=== PATIENT | male | born 1955 | race Caucasian/White ===

== ENCOUNTER 2016-10-14 18:15 | Emergency (ER) | payer BC ==
[2016-10-14] MEDS ORDERED: HYDROMORPHONE HCL 1 MG/ML CPJ IVP ONE ×2 (19:00→20:06)
[2016-10-14] MEDS ORDERED: METHYLPREDNISOLONE PF 125MG/VIAL IVP ONE (19:00)
--- NOTE | 2016-10-14 19:06 | Emergency Department Record ---
History of Present Illness - General Chief complaint: Pain Stated complaint: RA PAIN IN LEFT SHOULDER Time Seen by Provider: 10/14/16 19:00 Source: Patient Mode of Arrival: Ambulatory Limitations: No limitations - History of Present Illness Initial comments: 60 yo male presents with left shoulder pain. He has chronic pain but the left shoulder has increased the last few days. No trauma. He has a history of RA. No fevers or chills. No redness or swelling. Dr Burger is his doctor that manages his RA pain and medications. MD Complaint: Joint pain Onset/Timin -: Hour(s) Location: Left, Shoulder Severity scale (1-10): 10 Quality: Sharp Consistency: Constant Improves with: Nothing Worsens with: Exertion, Palpation, Weight bearing Associated Symptoms: Denies other symptoms - Related Data Home Medications Medication Instructions Recorded Confirmed Last Taken Amitriptyline HCl [Amitriptyline 100 mg PO QHS 05/01/14 10/14/16 04/30/14 22:00 HCl] Hydroxychloroquine Sulfate 400 mg PO DAILY 05/01/14 10/14/16 05/01/14 [Plaquenil] Methotrexate Sodium [Methotrexate] 25 mg PO ASDIR 05/01/14 10/14/16 04/28/14 Metoprolol Tartrate [Metoprolol 50 mg PO DAILY 05/01/14 10/14/16 04/30/14 22:00 Tartrate] Omeprazole [Omeprazole] 20 mg PO DAILY 05/01/14 10/14/16 04/30/14 22:00 Prednisone [Prednisone] 7.5 mg PO DAILY 05/01/14 10/14/16 04/30/14 22:00 Spironolactone [Spironolactone] 75 mg PO DAILY 05/01/14 10/14/16 04/30/14 22:00 Triazolam [Triazolam] 0.25 mg PO QPM 05/01/14 10/14/16 05/01/14 00:00 Cholecalciferol (Vitamin D3) 5,000 unit PO DAILY 10/05/14 10/14/16 Unknown [Vitamin D3] Folic Acid 3 mg PO DAILY 10/05/14 10/14/16 Unknown [place]-3 Fatty Acids/Fish Oil [Fish 8 each PO DAILY 10/05/14 10/14/16 Unknown Oil 1,000 mg Softgel] Bupropion HCl [Wellbutrin] 75 mg PO DAILY 07/18/15 10/14/16 Unknown Hydrocodone/Acetaminophen [[place] 1 tab PO Q6H PRN 10/14/16 10/14/16 Unknown 10mg/325mg] Allergies Allergy/AdvReac Type Severity Reaction Status Date / Time No Known Drug Allergies Allergy Unverified 02/06/16 14:18 Travel Screening - Travel/Exposure Within Last 30 Days Have you traveled within the last 30 days?: No Review of Systems Constitutional: Denies: Chills, Fever, Malaise, Weakness Eyes: Denies: Eye discharge, Eye pain, Photophobia, Vision change ENT: Denies: Congestion, Throat pain Respiratory: Denies: Cough, Dyspnea, Hemoptysis, Stridor, Wheezes Cardiovascular: Denies: Chest pain, Palpitations, Syncope Endocrine: Denies: Fatigue Gastrointestinal: Denies: Abdominal pain, Diarrhea, Nausea, Vomiting Genitourinary: Denies: Dysuria, Frequency, Hematuria Musculoskeletal: Reports: Arthralgia, Neck pain. Denies: Back pain, Joint swelling, Myalgia Skin: Denies: Bruising, Change in color, Rash Neurological: Denies: Confusion, Headache Psychiatric: Denies: Anxiety Hematological/Lymphatic: Denies: Blood Clots, Easy bleeding, Easy bruising, Swollen glands Past Medical History - SOCIAL HISTORY Smoking Status: Light tobacco smoker (<10/day) Alcohol Use: None Drug Use: None - RESPIRATORY Hx Respiratory Disorders: No - CARDIOVASCULAR Hx Cardio Disorders: Yes Hx Abnormal EKG: Yes - NEURO Hx Neuro Disorders: No - GI Hx GI Disorders: No - Hx Genitourinary Disorders: No - ENDOCRINE Hx Endocrine Disorders: No - MUSCULOSKELETAL Hx Musculoskeletal Disorders: Yes Hx Arthritis: Yes Comment:: R.A. - PSYCH Hx Psych Problems: No - HEMATOLOGY/ONCOLOGY Hx Hematology/Oncology Disorders: No Family Medical History Any Significant Family History?: No Family Hx Comment (NOT TO BE USED IN PLACE OF ITEMS BELOW): pt unwilling to answer questions Physical Exam - General General Appearance: Alert, Oriented x3, Cooperative, No acute distress Limitations: No limitations - Head Head exam: Normal inspection - Eye Eye exam: Normal appearance, PERRL. negative: Conjunctival injection, Periorbital swelling - ENT ENT exam: Normal exam Ear exam: Normal external inspection Nasal Exam: Normal inspection Mouth exam: Normal external inspection Teeth exam: Normal inspection Throat exam: Normal inspection - Neck Neck exam: Normal inspection, Full ROM. negative: Tenderness - Respiratory Respiratory exam: Normal lung sounds bilaterally. negative: Respiratory distress - Cardiovascular Cardiovascular Exam: Regular rate, Normal rhythm, Normal heart sounds - GI/Abdominal GI/Abdominal exam: Soft. negative: Tenderness - Rectal Rectal exam: Deferred - exam: Deferred - Extremities Extremities exam: Normal inspection, Tenderness. negative: Full ROM, Joint swelling, Normal capillary refill, Pedal edema Image of Full Body: 1 - pain with ROM, normal inspection, no swelling, no redness, no skin changes or lesions. - Back Back exam: Reports: Normal inspection, Full ROM. Denies: Muscle spasm, Rash noted, Tenderness - Neurological Neurological exam: Alert, Normal gait, Oriented X3, Reflexes normal - Psychiatric Psychiatric exam: Normal affect, Normal mood. negative: Agitated, Anxious - Skin Skin exam: Dry, Intact, Normal color, Warm Course Vital Signs 10/14/16 18:31 Temperature 97.5 F L Pulse Rate 62 Respiratory 20 Rate Blood Pressure 137/70 Pulse Ox 98 - Reevaluation(s) Reevaluation #1: Vitals reviewed EMR reviewed for last visit. 2014. 10/14/16 19:05 Reevaluation #2: XR was read as negative for acute process I discussed the results with the patient He is to call his PCP for close follow up tomorrow to possibly adjust his medications as needed 10/14/16 20:07 Disposition Disposition: Discharge Clinical Impression: Rheumatoid arthritis flare Disposition: Home, Self-Care Condition: (1) Good Instructions: Rheumatoid Arthritis (ED) Additional Instructions: Return if you have uncontrolled pain, redness, fever, swelling Off work tomorrow Call your doctor tomorrow for close follow up Forms: Patient Portal Access Time of Disposition: 20:09
--- NOTE | 2016-10-20 10:18 | RADIOLOGY REPORT ---
DATE: 10/14/2016. EXAM: LEFT SHOULDER. HISTORY: Injury. TECHNIQUE: Three views of the left shoulder were performed. FINDINGS: No evidence of fracture or dislocation. No lytic or blastic lesion. IMPRESSION: NEGATIVE LEFT SHOULDER EXAMINATION. JOB NUMBER: [id number] MTDD
== END 2016-10-14 20:50 | disposition home or self-care (01) ==
LOC: ER 18:15
DX: M06.812 Other specified rheumatoid arthritis, left shoulder (principal)
CPT/HCPCS: 99284 ×2; 96376; 96374; 96375; 73030; J1170; J2930

== ENCOUNTER 2017-02-07 17:03 | Emergency (ER) | payer BC ==
--- NOTE | 2017-02-07 17:14 | Emergency Department Record ---
History of Present Illness - General Chief complaint: Pain Stated complaint: RT SHOULDER PAIN Time Seen by Provider: 02/07/17 17:13 Source: Patient Mode of Arrival: Ambulatory Limitations: No limitations - History of Present Illness Initial comments: The patient is here due to R shoulder pain for 5 hours. The onset was gradually this AM. He denies any trauma or injury. The patient has a long hx of RA and states this has happened to the L shoulder in the past. It is thought to be an arthritis flare up. He denies any fever, chills, or swelling and the patient is not on any blood thinners. MD Complaint: Joint pain Onset/Timin -: Hour(s) Location: Right, Shoulder Severity scale (1-10): 10 Quality: Aching, Sharp Consistency: Constant Improves with: Nothing Worsens with: Other Associated Symptoms: Arthralgias - Related Data Home Medications Medication Instructions Recorded Confirmed Last Taken Amitriptyline HCl [Amitriptyline 100 mg PO QHS 05/01/14 02/07/17 04/30/14 22:00 HCl] Hydroxychloroquine Sulfate 400 mg PO DAILY 05/01/14 02/07/17 05/01/14 [Plaquenil] Methotrexate Sodium [Methotrexate] 25 mg PO ASDIR 05/01/14 02/07/17 04/28/14 Metoprolol Tartrate [Metoprolol 50 mg PO DAILY 05/01/14 02/07/17 04/30/14 22:00 Tartrate] Omeprazole [Omeprazole] 20 mg PO DAILY 05/01/14 02/07/17 04/30/14 22:00 Prednisone [Prednisone] 7.5 mg PO DAILY 05/01/14 02/07/17 04/30/14 22:00 Spironolactone [Spironolactone] 75 mg PO DAILY 05/01/14 02/07/17 04/30/14 22:00 Triazolam [Triazolam] 0.25 mg PO QPM 05/01/14 02/07/17 05/01/14 00:00 Cholecalciferol (Vitamin D3) 5,000 unit PO DAILY 10/05/14 02/07/17 Unknown [Vitamin D3] Folic Acid 3 mg PO DAILY 10/05/14 02/07/17 Unknown [place]-3 Fatty Acids/Fish Oil [Fish 8 each PO DAILY 10/05/14 02/07/17 Unknown Oil 1,000 mg Softgel] Allergies Allergy/AdvReac Type Severity Reaction Status Date / Time No Known Drug Allergies Allergy Unverified 02/06/16 14:18 Travel Screening - Travel/Exposure Within Last 30 Days Have you traveled within the last 30 days?: No Review of Systems Constitutional: Denies: Chills, Fever Eyes: Denies: Eye discharge ENT: Denies: Congestion Respiratory: Denies: Cough, Dyspnea Past Medical History - SOCIAL HISTORY Smoking Status: Light tobacco smoker (<10/day) Alcohol Use: None Drug Use: None - RESPIRATORY Hx Respiratory Disorders: No - CARDIOVASCULAR Hx Cardio Disorders: Yes Hx Abnormal EKG: Yes - NEURO Hx Neuro Disorders: No - GI Hx GI Disorders: No - Hx Genitourinary Disorders: No - ENDOCRINE Hx Endocrine Disorders: No - MUSCULOSKELETAL Hx Musculoskeletal Disorders: Yes Hx Arthritis: Yes Comment:: R.A. - PSYCH Hx Psych Problems: No - HEMATOLOGY/ONCOLOGY Hx Hematology/Oncology Disorders: No Family Medical History Any Significant Family History?: No Family Hx Comment (NOT TO BE USED IN PLACE OF ITEMS BELOW): pt unwilling to answer questions Physical Exam - General General Appearance: Alert, Oriented x3, Cooperative, No acute distress - Head Head exam: Atraumatic, Normocephalic, Normal inspection - Eye Eye exam: Normal appearance, PERRL - Neck Neck exam: Normal inspection, Full ROM. negative: Tenderness - Respiratory Respiratory exam: Normal lung sounds bilaterally. negative: Respiratory distress - Cardiovascular Cardiovascular Exam: Regular rate, Normal rhythm, Normal heart sounds - Extremities Extremities exam: Normal inspection (There is no swelling, erythema, edema, or warmth.), Normal capillary refill, Other (The R arm and hand are NVI.). negative: Full ROM (There is decreased ROM due to pain.), Joint swelling Course Vital Signs 02/07/17 17:07 Temperature 97.7 F Pulse Rate 59 L Respiratory 18 Rate Blood Pressure 124/90 Pulse Ox 96 - Reevaluation(s) Reevaluation #1: The patient is doing very well at this time. His pain is improved and he feels ready for home. 02/07/17 18:17 Medical Decision Making - Data Complexity MDM Data: X-Ray Ordered and/or Reviewed - Radiology Data Radiology results: Report reviewed (R shoulder: Neg) Disposition Disposition: Discharge Clinical Impression: Shoulder pain, acute Qualifiers: Laterality: right Qualified Code(s): M25.511 - Pain in right shoulder Disposition: Home, Self-Care Condition: (1) Good Instructions: Arthralgia (ED) Additional Instructions: Please use your home arm sling for 2-3 days only. Continue your home pain medicines and use ice to the shoulder during the day. Please see your PCP for recheck later this week and return to the ER if worse. Forms: Patient Portal Access Time of Disposition: 18:19
[2017-02-07] MEDS ORDERED: HYDROMORPHONE HCL 1 MG/ML CPJ IM ONE ×2 (17:18→18:04)
[2017-02-07] MEDS ORDERED: METHYLPREDNISOLONE PF 125MG/VIAL IM ONE (17:18)
[2017-02-07] MEDS ORDERED: ONDANSETRON 4 MG ODT TABLET SL ONE (17:28)
== END 2017-02-07 18:41 | disposition home or self-care (01) ==
LOC: ER 17:03
DX: M25.511 Pain in right shoulder (principal); M06.9 Rheumatoid arthritis, unspecified
CPT/HCPCS: 96372; 99283; J1170; J2930

== ENCOUNTER 2017-05-21 17:38 | Emergency (ER) | payer BC ==
[2017-05-21] MEDS: HYDROMORPHONE HCL 1MG/ML **SYRINGE IM ONE (18:15)
--- NOTE | 2017-05-21 18:36 | Emergency Department Record ---
History of Present Illness - General Chief complaint: Pain Stated complaint: LEFT SHOULDER PAIN Time Seen by Provider: 05/21/17 18:12 Source: Patient Mode of Arrival: Ambulatory Limitations: No limitations - History of Present Illness Initial comments: The patient is here due to L shoulder pain for one day. The patient denies any fall or trauma or injury and states the shoulder just started hurting. He has a long hx of similar problems with pain in his joints from his RA. He denies any fever, chills, vomiting, recent dental procedures or surgeries. MD Complaint: Extremity pain Onset/Timin -: Days(s) Location: Left, Shoulder Severity scale (1-10): 10 Quality: Aching Consistency: Constant Improves with: Rest Worsens with: Palpation - Related Data Previous Rx's Medication Instructions Recorded Prednisone [Prednisone 20Mg] 40 mg PO DAILY #8 tab 05/21/17 Allergies Allergy/AdvReac Type Severity Reaction Status Date / Time No Known Drug Allergies Allergy Verified 05/21/17 17:46 Travel Screening - Travel/Exposure Within Last 30 Days Have you traveled within the last 30 days?: No - Travel/Exposure Within Last Year Have you traveled outside the [place] in the last year?: No - Additonal Travel Details Have you been exposed to anyone with a communicable illness?: No - Travel Symptoms Symptom Screening: None Review of Systems Constitutional: Denies: Chills, Fever Eyes: Denies: Eye discharge ENT: Denies: Congestion Respiratory: Denies: Cough, Dyspnea Past Medical History - SOCIAL HISTORY Smoking Status: Light tobacco smoker (<10/day) Alcohol Use: None Drug Use: None - RESPIRATORY Hx Respiratory Disorders: No - CARDIOVASCULAR Hx Cardio Disorders: Yes Hx Abnormal EKG: Yes - NEURO Hx Neuro Disorders: No - GI Hx GI Disorders: No - Hx Genitourinary Disorders: No - ENDOCRINE Hx Endocrine Disorders: No - MUSCULOSKELETAL Hx Musculoskeletal Disorders: Yes Hx Arthritis: Yes Comment:: R.A. - PSYCH Hx Psych Problems: No - HEMATOLOGY/ONCOLOGY Hx Hematology/Oncology Disorders: No Family Medical History Any Significant Family History?: Yes Family Hx Comment (NOT TO BE USED IN PLACE OF ITEMS BELOW): pt unwilling to answer questions Physical Exam - General General Appearance: Alert, Oriented x3, Cooperative, No acute distress - Head Head exam: Atraumatic, Normocephalic, Normal inspection - Eye Eye exam: Normal appearance, PERRL - Neck Neck exam: Normal inspection, Full ROM. negative: Tenderness - Respiratory Respiratory exam: Normal lung sounds bilaterally. negative: Respiratory distress - Cardiovascular Cardiovascular Exam: Regular rate, Normal rhythm, Normal heart sounds - GI/Abdominal GI/Abdominal exam: Soft, Normal bowel sounds. negative: Tenderness - Extremities Extremities exam: Normal inspection (There is no redness, warmth or edema appreciated.), Tenderness (There is mild diffuse tenderness to palpation of the L shoulder.). negative: Full ROM (There is decreased ROM due to pain.), Joint swelling - Neurological Neurological exam: Alert. negative: Motor sensory deficit Course Vital Signs 05/21/17 17:40 Temperature 97.9 F Pulse Rate 65 Respiratory 14 Rate Blood Pressure 130/72 Pulse Ox 100 - Reevaluation(s) Reevaluation #1: The patient is doing better at this time. His pain is improving and he would like to go home. 05/21/17 18:56 Disposition Disposition: Discharge Clinical Impression: Shoulder pain, left Qualifiers: Chronicity: acute Qualified Code(s): M25.512 - Pain in left shoulder Disposition: Home, Self-Care Condition: (1) Good Instructions: Shoulder Pain (ED) Additional Instructions: Please continue your regular medicines and start the new dose of Prednisone tomorrow. Take the [place] tonight if needed. Please see your PCP if not better in 2 days. Return to the ER if worse. Prescriptions: Prednisone [Prednisone 20Mg] 40 mg PO DAILY #8 tab Forms: Patient Portal Access Time of Disposition: 18:58 Quality - Quality Measures Quality Measures: N/A - Blood Pressure Screening View Details: Yes Does Patient Have Any of the Following: No Blood Pressure Classification: Pre-Hypertensive BP Reading Systolic Measurement: 130 Diastolic Measurement: 72 Screening for High Blood Pressure: < Pre-Hypertensive BP, F/U Documented > [ G8950] Pre-Hypertensive Follow-up Interventions: Referral to alternative/primary care provider.
[2017-05-21] MEDS: METHYLPREDNISOLONE PF 125MG/VIAL IM ONE (18:37)
[2017-05-21] MEDS: HYDROCODONE/APAP 5/325MG TABLET PO ONE (19:07)
== END 2017-05-21 19:09 | disposition home or self-care (01) ==
LOC: ER 17:38
DX: M25.512 Pain in left shoulder (principal)
CPT/HCPCS: 99283 ×2; 96372; J1170; J2930

== ENCOUNTER 2017-05-23 13:58 | Emergency (ER) | payer BC, OTHER ==
[2017-05-23] MEDS ORDERED: Diph,Pert(Acell),Tet Vac 0.5 ML SYR IM ONE (14:29)
--- NOTE | 2017-05-23 14:31 | Emergency Department Record ---
History of Present Illness - General Chief Complaint: Laceration(s) Stated Complaint: LAC ON INSIDE OF ARM/WC Time Seen by Provider: 05/23/17 14:25 Source: Patient Mode of Arrival: Ambulatory Limitations: No limitations - History of Present Illness Initial Commments: 61 yo male presents after cutting his right forearm at work on a metal trailer door. No weakness, numbness or loss of function. Last tetanus shot was 9 years ago. He was not working around debris or metal chips or flakes. -: Minutes(s) Extremity Location: Right: Forearm Place: Work Context: Accidental Associated Symptoms: None Treatments Prior to Arrival: Bandage - [place] Coma Scale Eye Response: (4) Open spontaneously Motor Response: (6) Obeys commands Verbal Response: (5) Oriented [place] Total: 15 - Related Data Previous Rx's Medication Instructions Recorded Prednisone [Prednisone 20Mg] 40 mg PO DAILY #8 tab 05/21/17 Allergies Allergy/AdvReac Type Severity Reaction Status Date / Time No Known Drug Allergies Allergy Verified 05/21/17 17:46 Review of Systems Constitutional: Denies: Chills, Fever, Malaise, Weakness Eyes: Denies: Eye discharge ENT: Denies: Congestion, Throat pain Respiratory: Denies: Cough Cardiovascular: Denies: Chest pain, Syncope Endocrine: Denies: Fatigue Gastrointestinal: Denies: Abdominal pain, Diarrhea, Nausea, Vomiting Genitourinary: Denies: Dysuria, Frequency, Hematuria Musculoskeletal: Reports: Arthralgia (Chronic RA). Denies: Back pain, Myalgia, Neck pain Skin: Reports: Other (Laceration 3.5cm). Denies: Bruising, Change in color Neurological: Denies: Headache Psychiatric: Denies: Anxiety Hematological/Lymphatic: Denies: Easy bleeding, Easy bruising, Swollen glands Past Medical History - SOCIAL HISTORY Smoking Status: Light tobacco smoker (<10/day) Drug Use: None - RESPIRATORY Hx Respiratory Disorders: No - CARDIOVASCULAR Hx Cardio Disorders: Yes Hx Abnormal EKG: Yes - NEURO Hx Neuro Disorders: No - GI Hx GI Disorders: No - Hx Genitourinary Disorders: No - ENDOCRINE Hx Endocrine Disorders: No - MUSCULOSKELETAL Hx Musculoskeletal Disorders: Yes Hx Arthritis: Yes Comment:: R.A. - PSYCH Hx Psych Problems: No - HEMATOLOGY/ONCOLOGY Hx Hematology/Oncology Disorders: No Family Medical History Family Hx Comment (NOT TO BE USED IN PLACE OF ITEMS BELOW): pt unwilling to answer questions Physical Exam - General General Appearance: Alert, Oriented x3, Cooperative, No acute distress Limitations: No limitations - Head Head exam: Normal inspection - Eye Eye exam: Normal appearance - ENT ENT exam: Normal exam Ear exam: Normal external inspection Nasal Exam: Normal inspection Mouth exam: Normal external inspection - Neck Neck exam: Normal inspection, Full ROM. negative: Tenderness - Respiratory Respiratory exam: Normal lung sounds bilaterally. negative: Respiratory distress - Cardiovascular Cardiovascular Exam: Regular rate, Normal rhythm, Normal heart sounds Peripheral Pulses: 2+: Radial (R) - Rectal Rectal exam: Deferred - exam: Deferred - Extremities Extremities exam: Full ROM, Normal capillary refill. negative: Normal inspection, Joint swelling, Tenderness Image of Hand: 1 - 3.4cm linear laceration, no FB, no visible tendon or bone, superficial and flap like - Back Back exam: Reports: Full ROM - Neurological Neurological exam: Alert, Oriented X3 - Psychiatric Psychiatric exam: Normal affect, Normal mood - Skin Type of lesion: Laceration Course Vital Signs 05/23/17 14:13 Temperature 98.3 F Pulse Rate [ 71 Pulse Ox Probe] Respiratory 18 Rate Blood Pressure 128/82 [Left Arm] Pulse Ox 98 - Reevaluation(s) Reevaluation #1: PROCEDURE LACERATION REPAIR Betadine Prep Lidocaine with Epi 3ml local NS copious irrigation Clean laceration No FB or tendon injury visible Prolene 4-0 #7 with good wood approximation We discussed home care and reasons for an immediate recheck in the ED 05/23/17 14:31 Disposition Disposition: Discharge Clinical Impression: Forearm laceration Qualifiers: Encounter type: initial encounter Laterality: right Qualified Code(s): S51.811A - Laceration without foreign body of right forearm, initial encounter Disposition: Home, Self-Care Condition: (1) Good Instructions: Laceration (ED) Additional Instructions: Return in 10 days for a wound check and suture removal Return immediately if you have pain, pus, swelling, drainage or concerns Forms: Patient Portal Access Time of Disposition: 14:30 Quality - Quality Measures Quality Measures: N/A - Blood Pressure Screening Does Patient Have Any of the Following: No Blood Pressure Classification: Pre-Hypertensive BP Reading Systolic Measurement: 128 Diastolic Measurement: 82 Screening for High Blood Pressure: < Pre-Hypertensive BP, F/U Documented > [ G8950] Pre-Hypertensive Follow-up Interventions: Referral to alternative/primary care provider.
== END 2017-05-23 14:57 | disposition home or self-care (01) ==
LOC: ER 13:58
DX: S51.811A Laceration without foreign body of right forearm, initial encounter (principal); W26.8XXA Contact with other sharp object(s), not elsewhere classified, initial encounter; Y92.63 Factory as the place of occurrence of the external cause; Y99.0 Civilian activity done for income or pay
CPT/HCPCS: 90715; 96372; 99283

== ENCOUNTER 2017-06-02 14:43 | Emergency (ER) | payer OTHER ==
--- NOTE | 2017-06-02 15:17 | Emergency Department Record ---
History of Present Illness - General Chief Complaint: Suture removal Stated Complaint: REMOVE STITCHES Time Seen by Provider: 06/02/17 15:08 Source: Patient Mode of arrival: Ambulatory Limitations: No limitations - History of Present Illness Initial Comments: The patient is here for suture removal. He denies any problems. Complaint: Suture/staple removal Onset/Timin -: Days(s) Returns Today for: Staple/stitch removal - Related Data Previous Rx's Medication Instructions Recorded Prednisone [Prednisone 20Mg] 40 mg PO DAILY #8 tab 05/21/17 Allergies Allergy/AdvReac Type Severity Reaction Status Date / Time No Known Drug Allergies Allergy Verified 05/21/17 17:46 Travel Screening - Travel/Exposure Within Last 30 Days Have you traveled within the last 30 days?: No - Travel/Exposure Within Last Year Have you traveled outside the [place] in the last year?: No - Additonal Travel Details Have you been exposed to anyone with a communicable illness?: No - Travel Symptoms Symptom Screening: None Past Medical History - SOCIAL HISTORY Smoking Status: Light tobacco smoker (<10/day) Alcohol Use: None Drug Use: None - RESPIRATORY Hx Respiratory Disorders: No - CARDIOVASCULAR Hx Cardio Disorders: Yes Hx Abnormal EKG: Yes - NEURO Hx Neuro Disorders: No - GI Hx GI Disorders: No - Hx Genitourinary Disorders: No - ENDOCRINE Hx Endocrine Disorders: No - MUSCULOSKELETAL Hx Musculoskeletal Disorders: Yes Hx Arthritis: Yes Comment:: R.A. - PSYCH Hx Psych Problems: No - HEMATOLOGY/ONCOLOGY Hx Hematology/Oncology Disorders: No Family Medical History Any Significant Family History?: No Family Hx Comment (NOT TO BE USED IN PLACE OF ITEMS BELOW): pt unwilling to answer questions Physical Exam - General General Appearance: Alert, Cooperative, No acute distress - Head Head exam: Atraumatic - Extremities Extremities exam: Normal inspection (The patient's sutures were removed with no problems.) Course Vital Signs 06/02/17 15:06 Temperature 97.9 F Pulse Rate 71 Respiratory 16 Rate Blood Pressure 112/67 Pulse Ox 100 Disposition Disposition: Discharge Clinical Impression: Encounter for removal of sutures Disposition: Home, Self-Care Condition: (1) Good Instructions: Stitches Removal (ED) Additional Instructions: Return to the ER for any problems. Forms: Patient Portal Access Time of Disposition: 15:17 Quality - Quality Measures Quality Measures: N/A - Blood Pressure Screening Does Patient Have Any of the Following: No Blood Pressure Classification: Normal BP Reading Systolic Measurement: 112 Diastolic Measurement: 67 Screening for High Blood Pressure: < Normal BP, F/U Not Required > [G8783]
== END 2017-06-02 15:23 | disposition home or self-care (01) ==
LOC: ER 14:43
DX: Z48.02 Encounter for removal of sutures (principal)

== ENCOUNTER 2017-10-27 13:12 | Emergency (ER) | payer BC ==
[2017-10-27] MEDS ORDERED: ASPIRIN 81 MG CHEWABLE TABLET PO ONE (13:43)
--- NOTE | 2017-10-27 13:52 | Emergency Department Record ---
History of Present Illness - General Chief complaint: Pain Stated complaint: PAJIN IN RT HAND AND LT SHOULDER Time Seen by Provider: 10/27/17 13:34 Source: Patient Mode of Arrival: Ambulatory Limitations: No limitations - History of Present Illness Initial comments: pt has l shoulder pain that is severe that he thinks is his RA. it started this morning without apparent provacation. he has no other symptoms except pain in his r hand MD Complaint: Extremity pain, Joint pain Onset/Timin -: Hour(s) Location: Left History of Same: Yes Radiation: Proximal Severity scale (1-10): 10 Quality: Sharp Consistency: Constant Associated Symptoms: Arthralgias - Related Data Previous Rx's Medication Instructions Recorded Hydrocodone/Acetaminophen [[place] 1 each PO QID #10 tablet 10/27/17 5-325 Tablet] Methylprednisolone [Medrol Dose 4 mg PO ASDIR #1 tab.ds.pk 10/27/17 Pack] Allergies Allergy/AdvReac Type Severity Reaction Status Date / Time No Known Drug Allergies Allergy Verified 10/27/17 13:27 Travel Screening - Travel/Exposure Within Last 30 Days Have you traveled within the last 30 days?: No - Travel/Exposure Within Last Year Have you traveled outside the [place] in the last year?: No - Travel Symptoms Symptom Screening: None Review of Systems Reviewed: No additional complaints except as noted below Constitutional: Reports: As per HPI. Denies: Chills, Fever, Malaise, Night sweats, Weakness, Weight change Eyes: Reports: As per HPI. Denies: Eye discharge, Eye pain, Photophobia, Vision change ENT: Reports: As per HPI. Denies: Congestion, Dental pain, Ear pain, Epistaxis , Hearing loss, Throat pain Respiratory: Reports: As per HPI. Denies: Cough, Dyspnea, Hemoptysis, Stridor, Wheezes Cardiovascular: Reports: As per HPI. Denies: Arrhythmia, Chest pain, Dyspnea on exertion, Edema, Murmurs, Orthopnea, Palpitations, Paroxysmal nocturnal dyspnea, Rheumatic Fever, Syncope Endocrine: Reports: As per HPI. Denies: Fatigue, Heat or cold intolerance, Polydipsia, Polyuria Gastrointestinal: Reports: As per HPI. Denies: Abdominal pain, Constipation, Diarrhea, Hematemesis, Hematochezia, Melena, Nausea, Vomiting Genitourinary: Reports: As per HPI. Denies: Dysuria, Frequency, Hematuria, Incontinence, Retention, Testicular pain, Testicular mass, Urgency Musculoskeletal: Reports: As per HPI, Arthralgia. Denies: Back pain, Gout, Joint swelling, Myalgia, Neck pain Skin: Reports: As per HPI. Denies: Bruising, Change in color, Change in hair/ nails, Lesions, Pruritus, Rash Neurological: Reports: As per HPI. Denies: Abnormal gait, Confusion, Headache, Numbness, Paresthesias, Seizure, Tingling, Tremors, Vertigo, Weakness Psychiatric: Reports: As per HPI. Denies: Anxiety, Auditory hallucinations, Depression, Homicidal thoughts, Suicidal thoughts, Visual hallucinations Hematological/Lymphatic: Reports: As per HPI. Denies: Anemia, Blood Clots, Easy bleeding, Easy bruising, Swollen glands Past Medical History - SOCIAL HISTORY Smoking Status: Light tobacco smoker (<10/day) Alcohol Use: None Drug Use: None - RESPIRATORY Hx Respiratory Disorders: No - CARDIOVASCULAR Hx Cardio Disorders: Yes Hx Abnormal EKG: Yes - NEURO Hx Neuro Disorders: No - GI Hx GI Disorders: No - Hx Genitourinary Disorders: No - ENDOCRINE Hx Endocrine Disorders: No - MUSCULOSKELETAL Hx Musculoskeletal Disorders: Yes Hx Arthritis: Yes (rheumatiod) Comment:: R.A. - PSYCH Hx Psych Problems: No - HEMATOLOGY/ONCOLOGY Hx Hematology/Oncology Disorders: No Hx Cancer: Yes (skin cancer) Family Medical History Any Significant Family History?: No Family Hx Comment (NOT TO BE USED IN PLACE OF ITEMS BELOW): pt unwilling to answer questions Physical Exam - General General Appearance: Alert, Oriented x3, Cooperative, Mild distress - Head Head exam: Normal inspection - Eye Eye exam: Normal appearance, PERRL, EOMI Pupils: Normal accommodation - ENT ENT exam: Normal exam, Mucous membranes moist, Normal external ear exam, Normal orophraynx Ear exam: Normal external inspection. negative: External canal tenderness Nasal Exam: Normal inspection. negative: Discharge, Sinus tenderness Mouth exam: Normal external inspection, Tongue normal Teeth exam: Normal inspection. negative: Dental caries Throat exam: Normal inspection. negative: Tonsillar erythema, Tonsillar exudate - Neck Neck exam: Normal inspection, Full ROM. negative: Tenderness - Respiratory Respiratory exam: Normal lung sounds bilaterally. negative: Respiratory distress - Cardiovascular Cardiovascular Exam: Regular rate, Normal rhythm, Normal heart sounds - GI/Abdominal GI/Abdominal exam: Soft, Normal bowel sounds. negative: Tenderness - Rectal Rectal exam: Deferred - exam: Deferred - Extremities Extremities exam: Normal inspection, Full ROM, Normal capillary refill, Tenderness - Back Back exam: Reports: Normal inspection, Full ROM. Denies: Muscle spasm, Rash noted, Tenderness - Neurological Neurological exam: Alert, CN II-XII intact, Normal gait, Oriented X3 - Psychiatric Psychiatric exam: Normal affect, Normal mood - Skin Skin exam: Dry, Intact, Normal color, Warm Course Vital Signs 10/27/17 13:20 Temperature 97.4 F L Pulse Rate 62 Respiratory 18 Rate Blood Pressure 138/75 Pulse Ox 100 Medical Decision Making - Lab Data Result diagrams: 10/27/17 14:05 10/27/17 14:05 Disposition Disposition: Discharge Clinical Impression: Rheumatoid arthritis flare Disposition: Home, Self-Care Condition: (1) Good Instructions: Rheumatoid Arthritis (ED) Additional Instructions: follow up 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 return sooner if worse Prescriptions: Hydrocodone/Acetaminophen [[place] 5-325 Tablet] 1 each PO QID #10 tablet Methylprednisolone [Medrol Dose Pack] 4 mg PO ASDIR #1 tab.ds.pk Forms: Patient Portal Access Quality - Quality Measures Quality Measures: N/A - Blood Pressure Screening Does Patient Have Any of the Following: No Blood Pressure Classification: Pre-Hypertensive BP Reading Systolic Measurement: 138 Diastolic Measurement: 75 Screening for High Blood Pressure: < Pre-Hypertensive BP, F/U Documented > [ G8950] Pre-Hypertensive Follow-up Interventions: Follow-up with rescreen every year.
[2017-10-27] MEDS: NITROGLYCERIN 0.4MG SL TABLET #25 BTL SL PRN ×2 (14:10→14:15)
[2017-10-27] MEDS ORDERED: METHYLPREDNISOLONE PF 125MG/VIAL IVP ONE (14:24)
[2017-10-27 14:27] LABS: HEMATOCRIT 41.3 % (42.0-52.0); HEMOGLOBIN 14.6 gm/dl (14.0-18.0); MEAN CELL VOLUME 92.6 fl (81-97); MEAN CORPUSCULAR HEMOGLOBIN 32.7 pg (27-33); MEAN CORPUSCULAR HGB CONC 35.4 g/dl (32-36); MEAN PLATELET VOLUME 8.8 fl (7.4-10.4); PLATELET COUNT 331 K/uL (130-400); RED BLOOD COUNT 4.46 M/uL (4.40-5.70); RED CELL DISTRIBUTION WIDTH 14.2 % (11.5-14.5); WHITE BLOOD COUNT W/O DIFF 14.3 K/uL (4.2-12.2)
[2017-10-27] MEDS ORDERED: HYDROMORPHONE HCL 1 MG/ML SYRINGE IVP ONE (14:38)
[2017-10-27 14:39] LABS: PLATELET ESTIMATE NORMAL (NORMAL)
[2017-10-27] MEDS ORDERED: PROMETHAZINE HCL 6.25 MG in 0.9 % SODIUM CHLORIDE 100ML 100 ML IVPB ONE (14:39)
[2017-10-27 14:40] LABS: GLUCOSE,RANDOM 104 mg/dL (74-109)
[2017-10-27 14:43] LABS: CREATINE PHOSPHOKINASE 182 U/L (39-308)
[2017-10-27 14:44] LABS: BLOOD UREA NITROGEN 12 mg/dL (8-23); CREATININE 0.6 mg/dL (0.7-1.2); EST GLOMERULAR FILTRATION RATE > 60 mL/min
[2017-10-27 14:45] LABS: CKMB 5.5 ng/mL (<6.73)
--- NOTE | 2017-10-27 14:59 | Emergency Department Record ---
History of Present Illness - General Chief complaint: Pain Stated complaint: PAJIN IN RT HAND AND LT SHOULDER Time Seen by Provider: 10/27/17 13:34 Source: Patient Mode of Arrival: Ambulatory Limitations: No limitations - History of Present Illness Onset/Timin -: Hour(s) Location: Left History of Same: Yes Radiation: Proximal Severity scale (1-10): 10 Quality: Sharp Consistency: Constant Associated Symptoms: Arthralgias - Related Data Previous Rx's Medication Instructions Recorded Hydrocodone/Acetaminophen [[place] 1 each PO QID #10 tablet 10/27/17 5-325 Tablet] Methylprednisolone [Medrol Dose 4 mg PO ASDIR #1 tab.ds.pk 10/27/17 Pack] Allergies Allergy/AdvReac Type Severity Reaction Status Date / Time No Known Drug Allergies Allergy Verified 10/27/17 13:27 Travel Screening - Travel/Exposure Within Last 30 Days Have you traveled within the last 30 days?: No - Travel/Exposure Within Last Year Have you traveled outside the [place] in the last year?: No - Travel Symptoms Symptom Screening: None Review of Systems Constitutional: Reports: As per HPI. Denies: Chills, Fever, Malaise, Night sweats, Weakness, Weight change Eyes: Reports: As per HPI. Denies: Eye discharge, Eye pain, Photophobia, Vision change ENT: Reports: As per HPI. Denies: Congestion, Dental pain, Ear pain, Epistaxis , Hearing loss, Throat pain Respiratory: Reports: As per HPI. Denies: Cough, Dyspnea, Hemoptysis, Stridor, Wheezes Cardiovascular: Reports: As per HPI. Denies: Arrhythmia, Chest pain, Dyspnea on exertion, Edema, Murmurs, Orthopnea, Palpitations, Paroxysmal nocturnal dyspnea, Rheumatic Fever, Syncope Endocrine: Reports: As per HPI. Denies: Fatigue, Heat or cold intolerance, Polydipsia, Polyuria Gastrointestinal: Reports: As per HPI. Denies: Abdominal pain, Constipation, Diarrhea, Hematemesis, Hematochezia, Melena, Nausea, Vomiting Genitourinary: Reports: As per HPI. Denies: Dysuria, Frequency, Hematuria, Incontinence, Retention, Testicular pain, Testicular mass, Urgency Musculoskeletal: Reports: As per HPI, Arthralgia. Denies: Back pain, Gout, Joint swelling, Myalgia, Neck pain Skin: Reports: As per HPI. Denies: Bruising, Change in color, Change in hair/ nails, Lesions, Pruritus, Rash Neurological: Reports: As per HPI. Denies: Abnormal gait, Confusion, Headache, Numbness, Paresthesias, Seizure, Tingling, Tremors, Vertigo, Weakness Psychiatric: Reports: As per HPI. Denies: Anxiety, Auditory hallucinations, Depression, Homicidal thoughts, Suicidal thoughts, Visual hallucinations Hematological/Lymphatic: Reports: As per HPI. Denies: Anemia, Blood Clots, Easy bleeding, Easy bruising, Swollen glands Past Medical History - SOCIAL HISTORY Smoking Status: Light tobacco smoker (<10/day) Alcohol Use: None Drug Use: None - RESPIRATORY Hx Respiratory Disorders: No - CARDIOVASCULAR Hx Cardio Disorders: Yes Hx Abnormal EKG: Yes - NEURO Hx Neuro Disorders: No - GI Hx GI Disorders: No - Hx Genitourinary Disorders: No - ENDOCRINE Hx Endocrine Disorders: No - MUSCULOSKELETAL Hx Musculoskeletal Disorders: Yes Hx Arthritis: Yes (rheumatiod) Comment:: R.A. 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0 (0-9) % Platelet Estimate Normal (NORMAL) RBC Morphology Normal Eosinophil Count 3.0 (0-6) % Sodium 139 (136-145) mmol/L Potassium 3.7 (3.4-4.5) mmol/L Chloride 102 (98-107) mmol/L Carbon Dioxide 24.0 (22-29) mmol/L Anion Gap 13.0 (7-16) BUN 12 (8-23) mg/dL Creatinine 0.6 L (0.7-1.2) mg/dL Estimated GFR > 60 mL/min Random Glucose 104 (74-109) mg/dL Calcium 8.7 L (8.8-10.2) mg/dL Creatine Kinase 182 (39-308) U/L CK-MB (CK-2) 5.5 (<6.73) ng/mL Troponin T < 0.010 (0-0.010) ng/mL Disposition Clinical Impression: Rheumatoid arthritis flare Disposition: Home, Self-Care Condition: (1) Good Instructions: Rheumatoid Arthritis (ED) Additional Instructions: follow up with family doctor and 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 return sooner if worse Prescriptions: Hydrocodone/Acetaminophen [[place] 5-325 Tablet] 1 each PO QID #10 tablet Methylprednisolone [Medrol Dose Pack] 4 mg PO ASDIR #1 tab.ds.pk Referrals: JIM KING [DOCTOR OF OSTEOPATH] - [facility] [Provider Group] Forms: Patient Portal Access Quality - Quality Measures Quality Measures: N/A - Blood Pressure Screening Does Patient Have Any of the Following: No Blood Pressure Classification: Pre-Hypertensive BP Reading Systolic Measurement: 138 Diastolic Measurement: 75 Screening for High Blood Pressure: < Pre-Hypertensive BP, F/U Documented > [ G8950] Pre-Hypertensive Follow-up Interventions: Follow-up with rescreen every year.
--- NOTE | 2017-10-28 07:27 | RADIOLOGY REPORT ---
EXAM: CHEST, TWO VIEWS HISTORY: CHEST PAIN. TECHNIQUE: Frontal and lateral views of the chest were obtained. Comparison: 12/10/16 chest. FINDINGS: The heart size is normal. Osteopenia. Calcified granulomata in each lung base. Minimal subsegmental atelectasis in the lung bases bilaterally. The lungs are otherwise clear. IMPRESSION: BIBASILAR SUBSEGMENTAL ATELECTASIS. CALCIFIED GRANULOMA IN THE LUNG BASES. JOB NUMBER: [id number] MTDD
== END 2017-10-27 15:50 | disposition home or self-care (01) ==
LOC: ER 13:12
DX: M06.9 Rheumatoid arthritis, unspecified (principal); R07.9 Chest pain, unspecified; M25.512 Pain in left shoulder; M79.642 Pain in left hand; F17.210 Nicotine dependence, cigarettes, uncomplicated
CPT/HCPCS: 99284 ×2; 96374; 96375; 82550; 85651; 82553; 80048; 84484; 85027; 71046; 93005; 93010; J1170; J2550; J2930

== ENCOUNTER 2017-11-08 10:06 | Emergency (ER) | payer SELFPAY ==
[2017-11-08] MEDS ORDERED: PROMETHAZINE HCL 25 MG/ML VIAL IM ONE (10:29)
[2017-11-08] MEDS ORDERED: HYDROMORPHONE HCL 1 MG/ML SYRINGE IM ONE (10:29)
[2017-11-08] MEDS ORDERED: ORPHENADRINE CITRATE 60MG/2ML VIAL IM ONE (10:29)
--- NOTE | 2017-11-08 10:34 | Emergency Department Record ---
History of Present Illness - General Chief complaint: Pain Stated complaint: PULLED MUSCLE Time Seen by Provider: 11/08/17 10:10 Source: Patient Mode of Arrival: Ambulatory Limitations: No limitations - History of Present Illness Initial comments: pt pulled pec muscle yesterday while throwing a tarp. pain increases w movement and inspiration Complaint: Other Onset/Timin -: Days(s) Location: Right, Other History of Same: Yes Radiation: None Severity scale (1-10): 10 Quality: Sharp Consistency: Constant Improves with: Nothing Worsens with: Exertion, Weight bearing Associated Symptoms: Denies other symptoms - Related Data Previous Rx's Medication Instructions Recorded Hydrocodone/Acetaminophen [[place] 1 each PO QID #10 tablet 10/27/17 5-325 Tablet] Cyclobenzaprine HCl [Flexeril] 10 mg PO TID #14 tablet 11/08/17 Hydrocodone/Acetaminophen [[place] 1 each PO Q6HR #10 tablet 11/08/17 5-325 Tablet] Allergies Allergy/AdvReac Type Severity Reaction Status Date / Time No Known Drug Allergies Allergy Verified 10/27/17 13:27 Travel Screening - Travel/Exposure Within Last 30 Days Have you traveled within the last 30 days?: No Review of Systems Reviewed: No additional complaints except as noted below Constitutional: Reports: As per HPI. Denies: Chills, Fever, Malaise, Night sweats, Weakness, Weight change Eyes: Reports: As per HPI. Denies: Eye discharge, Eye pain, Photophobia, Vision change ENT: Reports: As per HPI. Denies: Congestion, Dental pain, Ear pain, Epistaxis , Hearing loss, Throat pain Respiratory: Reports: As per HPI. Denies: Cough, Dyspnea, Hemoptysis, Stridor, Wheezes Cardiovascular: Reports: As per HPI. Denies: Arrhythmia, Chest pain, Dyspnea on exertion, Edema, Murmurs, Orthopnea, Palpitations, Paroxysmal nocturnal dyspnea, Rheumatic Fever, Syncope Endocrine: Reports: As per HPI. Denies: Fatigue, Heat or cold intolerance, Polydipsia, Polyuria Gastrointestinal: Reports: As per HPI. Denies: Abdominal pain, Constipation, Diarrhea, Hematemesis, Hematochezia, Melena, Nausea, Vomiting Genitourinary: Reports: As per HPI. Denies: Dysuria, Frequency, Hematuria, Incontinence, Retention, Testicular pain, Testicular mass, Urgency Musculoskeletal: Reports: As per HPI. Denies: Arthralgia, Back pain, Gout, Joint swelling, Myalgia, Neck pain Skin: Reports: As per HPI. Denies: Bruising, Change in color, Change in hair/ nails, Lesions, Pruritus, Rash Neurological: Reports: As per HPI. Denies: Abnormal gait, Confusion, Headache, Numbness, Paresthesias, Seizure, Tingling, Tremors, Vertigo, Weakness Psychiatric: Reports: As per HPI. Denies: Anxiety, Auditory hallucinations, Depression, Homicidal thoughts, Suicidal thoughts, Visual hallucinations Hematological/Lymphatic: Reports: As per HPI. Denies: Anemia, Blood Clots, Easy bleeding, Easy bruising, Swollen glands Past Medical History - SOCIAL HISTORY Smoking Status: Light tobacco smoker (<10/day) Alcohol Use: None Drug Use: None - RESPIRATORY Hx Respiratory Disorders: No - CARDIOVASCULAR Hx Cardio Disorders: Yes Hx Abnormal EKG: Yes - NEURO Hx Neuro Disorders: No - GI Hx GI Disorders: No - Hx Genitourinary Disorders: No - ENDOCRINE Hx Endocrine Disorders: No - MUSCULOSKELETAL Hx Musculoskeletal Disorders: Yes Hx Arthritis: Yes (rheumatiod) Comment:: R.A. - PSYCH Hx Psych Problems: No - HEMATOLOGY/ONCOLOGY Hx Hematology/Oncology Disorders: No Hx Cancer: Yes (skin cancer) Family Medical History Any Significant Family History?: No Family Hx Comment (NOT TO BE USED IN PLACE OF ITEMS BELOW): pt unwilling to answer questions Physical Exam - General General Appearance: Alert, Oriented x3, Cooperative, Mild distress - Head Head exam: Normal inspection - Eye Eye exam: Normal appearance, PERRL, EOMI Pupils: Normal accommodation - ENT ENT exam: Normal exam, Mucous membranes moist, Normal external ear exam, Normal orophraynx Ear exam: Normal external inspection. negative: External canal tenderness Nasal Exam: Normal inspection. negative: Discharge, Sinus tenderness Mouth exam: Normal external inspection, Tongue normal Teeth exam: Normal inspection. negative: Dental caries Throat exam: Normal inspection. negative: Tonsillar erythema, Tonsillar exudate - Neck Neck exam: Normal inspection, Full ROM. negative: Tenderness - Respiratory Respiratory exam: Chest wall tenderness. negative: Respiratory distress - Cardiovascular Cardiovascular Exam: Regular rate, Normal rhythm, Normal heart sounds - GI/Abdominal GI/Abdominal exam: Soft, Normal bowel sounds. negative: Tenderness - Rectal Rectal exam: Deferred - exam: Deferred - Extremities Extremities exam: Normal inspection, Full ROM, Normal capillary refill. negative: Tenderness - Back Back exam: Reports: Normal inspection, Full ROM. Denies: Muscle spasm, Rash noted, Tenderness - Neurological Neurological exam: Alert, CN II-XII intact, Normal gait, Oriented X3 - Psychiatric Psychiatric exam: Normal affect, Normal mood - Skin Skin exam: Dry, Intact, Normal color, Warm Course Vital Signs 11/08/17 10:16 Temperature 97.6 F Pulse Rate [ 66 Pulse Ox Probe] Respiratory 20 Rate Blood Pressure 112/75 [Left Arm] Pulse Ox 100 - Reevaluation(s) Reevaluation #1: 11/08/17 11:30 pt feels better Disposition Disposition: Discharge Clinical Impression: Strain of right pectoralis muscle Qualifiers: Encounter type: initial encounter Qualified Code(s): S29.011A - Strain of muscle and tendon of front wall of thorax, initial encounter Disposition: Home, Self-Care Condition: (1) Good Instructions: Muscle Strain (ED) Additional Instructions: follow up with family doctor. return sooner if worse. ice to sore area Prescriptions: Hydrocodone/Acetaminophen [[place] 5-325 Tablet] 1 each PO Q6HR #10 tablet Cyclobenzaprine HCl [Flexeril] 10 mg PO TID #14 tablet Forms: Patient Portal Access, Return to Work/School Quality - Quality Measures Quality Measures: N/A - Blood Pressure Screening Does Patient Have Any of the Following: No Blood Pressure Classification: Normal BP Reading Systolic Measurement: 112 Diastolic Measurement: 75 Screening for High Blood Pressure: < Normal BP, F/U Not Required > [G8783]
[2017-11-08 11:56] LABS: AMPHETAMINE SCREEN URINE NOT DETECTED; BARBITURATE SCREEN URINE NOT DETECTED; BENZODIAZEPINE SCREEN URINE NOT DETECTED; COCAINE SCREEN URINE NOT DETECTED; METHADONE SCREEN URINE NOT DETECTED; METHAMPHETAMINE SCREEN NOT DETECTED; OPIATE SCREEN URINE DETECTED; OXYCODONE SCREEN URINE NOT DETECTED; PHENCYCLIDINE SCREEN URINE NOT DETECTED; PROPOXYPHENE SCREEN URINE NOT DETECTED; THC SCREEN URINE NOT DETECTED; TRICYCLIC ANTIDEPRESSANT SCRN DETECTED
--- NOTE | 2017-11-09 08:55 | RADIOLOGY REPORT ---
EXAM: CHEST, TWO VIEWS HISTORY: ACUTE RIGHT THORACIC PAIN. MUSCLE STRAIN. TECHNIQUE: Upright PA and lateral views of the chest were obtained. Comparison: Two view chest radiographic examination dated 10/27/17. FINDINGS: The heart is not enlarged and the pulmonary vasculature is nondilated. No new lung consolidation is present. Mild predominantly reticular opacity prominence within the left lung base is stable. There has been interval improvement in aeration of the right lung base. No new lung consolidation, costophrenic angle blunting, or pneumothorax. Degenerative changes scattered within the visualized spine. IMPRESSION: INTERVAL CLEARING OF MINOR AIR SPACE DISEASE FROM THE RIGHT LUNG BASE. MINOR PATCHY PREDOMINANTLY RETICULAR OPACITY PROMINENCE REDEMONSTRATED IN THE LEFT LUNG BASE, UNCHANGED CONSISTENT WITH ATELECTASIS, CHRONIC INTERSTITIAL CHANGE OR LESS LIKELY EARLY INFILTRATE. JOB NUMBER: [id number] [facility]
== END 2017-11-08 11:46 | disposition home or self-care (01) ==
LOC: ER 10:06
DX: S29.011A Strain of muscle and tendon of front wall of thorax, initial encounter (principal); M54.6 Pain in thoracic spine; X50.0XXA Overexertion from strenuous movement or load, initial encounter; Y92.63 Factory as the place of occurrence of the external cause; Y99.0 Civilian activity done for income or pay; Z79.899 Other long term (current) drug therapy; F17.210 Nicotine dependence, cigarettes, uncomplicated
CPT/HCPCS: 99283; 96372; 99284; 80305; 71046; J1170; J2360; J2550

== ENCOUNTER 2017-11-09 05:59 | Emergency (ER) | payer SELFPAY ==
--- NOTE | 2017-11-09 06:18 | Emergency Department Record ---
History of Present Illness - General Chief complaint: Pain Time Seen by Provider: 11/09/17 06:06 Source: Patient Mode of Arrival: Ambulatory Limitations: No limitations - History of Present Illness Initial comments: 61 yo male returns to ED for evaluation of continued, diffuse pain all over the body. Patient was seen yesterday for similar symptoms resulting from throwing a tarp, was received Dilaudid and Flexeril was was discharged home on [place] and Flexeril for his pain symptoms. Patient reports that he vomited yesterday and was unable to keep his pain medications down resulting in a flare-up of his pain symptoms. Patient reports that he has not taken anything for pain in 10.5 hours. Patient reports that he takes prednisone and methotrexate for his RA symptoms, but that his pain is worse than usual all over his body. MD Complaint: Diffuse Onset/Timin -: Days(s) History of Same: Yes -: Yes Arthralgia Consistency: Constant Improves with: Nothing Worsens with: Nothing Associated Symptoms: Denies other symptoms - Related Data Previous Rx's Medication Instructions Recorded Hydrocodone/Acetaminophen [[place] 1 each PO QID #10 tablet 10/27/17 5-325 Tablet] Cyclobenzaprine HCl [Flexeril] 10 mg PO TID #14 tablet 11/08/17 Hydrocodone/Acetaminophen [[place] 1 each PO Q6HR #10 tablet 11/08/17 5-325 Tablet] Ondansetron [Zofran Odt] 4 mg PO Q6H PRN #20 tab.rapdis 11/09/17 Prednisone [Prednisone 20Mg] 20 mg PO TID #15 tab 11/09/17 Allergies Allergy/AdvReac Type Severity Reaction Status Date / Time No Known Drug Allergies Allergy Verified 10/27/17 13:27 Travel Screening - Travel/Exposure Within Last 30 Days Have you traveled within the last 30 days?: No - Travel Symptoms Symptom Screening: None Review of Systems Constitutional: Denies: Chills, Fever, Malaise, Night sweats Eyes: Denies: Eye discharge, Eye pain ENT: Denies: Congestion, Ear pain, Epistaxis Respiratory: Denies: Cough, Dyspnea Cardiovascular: Denies: Chest pain, Dyspnea on exertion Endocrine: Denies: Fatigue, Heat or cold intolerance Gastrointestinal: Denies: Abdominal pain, Nausea, Vomiting Genitourinary: Denies: Incontinence, Retention Musculoskeletal: Reports: Arthralgia. Denies: Back pain, Gout, Joint swelling Skin: Denies: Bruising, Change in color Neurological: Denies: Abnormal gait, Confusion, Headache, Seizure Psychiatric: Denies: Anxiety Hematological/Lymphatic: Denies: Anemia, Blood Clots Past Medical History - SOCIAL HISTORY Smoking Status: Light tobacco smoker (<10/day) - RESPIRATORY Hx Respiratory Disorders: No - CARDIOVASCULAR Hx Cardio Disorders: Yes Hx Abnormal EKG: Yes - NEURO Hx Neuro Disorders: No - GI Hx GI Disorders: No - Hx Genitourinary Disorders: No - ENDOCRINE Hx Endocrine Disorders: No - MUSCULOSKELETAL Hx Musculoskeletal Disorders: Yes Hx Arthritis: Yes (rheumatiod) Comment:: R.A. - PSYCH Hx Psych Problems: No - HEMATOLOGY/ONCOLOGY Hx Hematology/Oncology Disorders: No Hx Cancer: Yes (skin cancer) Family Medical History Any Significant Family History?: No Family Hx Comment (NOT TO BE USED IN PLACE OF ITEMS BELOW): DENIES Physical Exam - General General Appearance: Alert, Oriented x3, Cooperative, Mild distress Limitations: No limitations - Head Head exam: Atraumatic, Normocephalic, Normal inspection Head exam detail: negative: Abrasion, Contusion, Davis's sign, General tenderness, Hematoma, Laceration - Eye Eye exam: Normal appearance. negative: Conjunctival injection, Periorbital swelling, Periorbital tenderness, Scleral icterus - ENT Ear exam: negative: Auricular hematoma, Auricular trauma Nasal Exam: negative: Active bleeding, Discharge, Dried blood, Foreign body Mouth exam: negative: Drooling, Laceration, Tongue elevation - Neck Neck exam: Normal inspection. negative: Meningismus, Tenderness - Respiratory Respiratory exam: Normal lung sounds bilaterally. negative: Rales, Respiratory distress, Rhonchi, Stridor - Cardiovascular Cardiovascular Exam: Regular rate, Normal rhythm, Normal heart sounds - GI/Abdominal GI/Abdominal exam: Soft. negative: Rebound, Rigid, Tenderness - Rectal Rectal exam: Deferred - exam: Deferred - Extremities Extremities exam: Tenderness, Other (Chronic changes to the joints diffusely). negative: Calf tenderness, Pedal edema - Back Back exam: Denies: CVA tenderness (R), CVA tenderness (L) - Neurological Neurological exam: Alert, Normal gait, Oriented X3 - Psychiatric Psychiatric exam: Normal affect, Normal mood - Skin Skin exam: Normal color. negative: Abrasion Type of lesion: negative: abrasion Course Vital Signs 11/09/17 06:05 Temperature 98.2 F Pulse Rate [ 78 Pulse Ox Probe] Respiratory 18 Rate Blood Pressure 116/66 [Left Arm] Pulse Ox 98 - Reevaluation(s) Reevaluation #1: 11/09/17 06:19 Case was discussed with Dr. Burger, will administer Solumedrol and increase the patient's prednisone for a short term burst to reduce his pain and inflammation symptoms. Patient has [place] and Flexeril prescribed yesterday from the ED as well. Will also prescribe Zofran for his vomiting symptoms to assist with taking the medications prescribed yesterday. Will have the patient follow-up with his PCP in 1-3 days as well for his pain symptoms. 11/09/17 06:21 Disposition Disposition: Discharge Clinical Impression: Rheumatoid arthritis flare Disposition: Home, Self-Care Condition: (2) Stable Instructions: Rheumatoid Arthritis (ED) Additional Instructions: Return to ED if your symptoms worsen or if you have any concerns. Zofran and Prednisone as directed. Follow-up with Dr. Burger in 1-3 days as directed. Prescriptions: Ondansetron [Zofran Odt] 4 mg PO Q6H PRN #20 tab.rapdis PRN Reason: Nausea/Vomiting Prednisone [Prednisone 20Mg] 20 mg PO TID #15 tab Forms: Patient Portal Access Time of Disposition: 06:26 Quality - Quality Measures Quality Measures: N/A - Blood Pressure Screening Does Patient Have Any of the Following: No Blood Pressure Classification: Normal BP Reading Systolic Measurement: 116 Diastolic Measurement: 66 Screening for High Blood Pressure: < Normal BP, F/U Not Required > [G8783]
[2017-11-09] MEDS ORDERED: ONDANSETRON HCL IV 4 MG/2 ML VIAL IM ONE (06:21)
[2017-11-09] MEDS ORDERED: METHYLPREDNISOLONE PF 125MG/VIAL IVP ONE (06:21)
[2017-11-09] MEDS ORDERED: ONDANSETRON 4 MG ODT TABLET SL ONE (06:33)
== END 2017-11-09 07:14 | disposition home or self-care (01) ==
LOC: ER 05:59
DX: M06.9 Rheumatoid arthritis, unspecified (principal); R11.11 Vomiting without nausea; F17.210 Nicotine dependence, cigarettes, uncomplicated
CPT/HCPCS: 96374; 99284; J2930

== ENCOUNTER 2018-02-15 12:04 | Emergency (ER) | payer BC ==
[2018-02-15] MEDS ORDERED: METHYLPREDNISOLONE PF 125MG/VIAL IM ONE (12:25)
--- NOTE | 2018-02-15 12:29 | Emergency Department Record ---
History of Present Illness - General Chief complaint: Extremity Problem Stated complaint: L Shoulder Stiff Time Seen by Provider: 02/15/18 12:06 Source: Patient Mode of Arrival: Ambulatory Limitations: No limitations - History of Present Illness Initial comments: The patient is here due to L shoulder pain for 4 hours. The pain is sharp and stabbing and much worse with any movement or ROM. The patient has a long hx of RA and pain flare ups exactly like this to his L shoulder. He denies any CP, SOB , DEB, sweating or trauma. He has been here multiple times with the same issues and usually receives steroids and pain medicines. MD Complaint: Extremity pain, Joint pain Onset/Timin -: Hour(s) Location: Left, Shoulder History of Same: Yes Radiation: None Severity scale (1-10): 10 Quality: Sharp, Stabbing Consistency: Getting worse Improves with: Nothing Worsens with: Exertion Associated Symptoms: Denies other symptoms - Related Data Previous Rx's Medication Instructions Recorded Methylprednisolone [Medrol Dose 4 mg PO DAILY #1 tab.ds.pk 02/15/18 Pack] Allergies Allergy/AdvReac Type Severity Reaction Status Date / Time No Known Drug Allergies Allergy Verified 02/15/18 12:08 Travel Screening - Travel/Exposure Within Last 30 Days Have you traveled within the last 30 days?: No - Travel/Exposure Within Last Year Have you traveled outside the [place] in the last year?: No - Additonal Travel Details Have you been exposed to anyone with a communicable illness?: No - Travel Symptoms Symptom Screening: None Review of Systems Constitutional: Denies: Chills, Fever, Malaise Eyes: Denies: Eye discharge ENT: Denies: Congestion Respiratory: Denies: Cough, Dyspnea Cardiovascular: Denies: Arrhythmia, Chest pain Past Medical History - SOCIAL HISTORY Smoking Status: Light tobacco smoker (<10/day) Alcohol Use: None Drug Use: None - RESPIRATORY Hx Respiratory Disorders: No - CARDIOVASCULAR Hx Cardio Disorders: Yes Hx Abnormal EKG: Yes - NEURO Hx Neuro Disorders: No - GI Hx GI Disorders: No - Hx Genitourinary Disorders: No - ENDOCRINE Hx Endocrine Disorders: No - MUSCULOSKELETAL Hx Musculoskeletal Disorders: Yes Hx Arthritis: Yes (rheumatiod) Comment:: R.A. - PSYCH Hx Psych Problems: No - HEMATOLOGY/ONCOLOGY Hx Hematology/Oncology Disorders: No Hx Cancer: Yes (skin cancer) Family Medical History Any Significant Family History?: No Family Hx Comment (NOT TO BE USED IN PLACE OF ITEMS BELOW): DENIES Physical Exam - General General Appearance: Alert, Oriented x3, Cooperative, Mild distress - Head Head exam: Atraumatic, Normocephalic, Normal inspection - Eye Eye exam: Normal appearance, PERRL - Neck Neck exam: Normal inspection, Full ROM. negative: Tenderness - Respiratory Respiratory exam: Normal lung sounds bilaterally. negative: Respiratory distress - Cardiovascular Cardiovascular Exam: Regular rate, Normal rhythm, Normal heart sounds - Extremities Extremities exam: Normal inspection (There is no warmth, erythema or bruising appreciated.), Tenderness (There is exquisite tenderness to the L shoulder diffusely. ), Other (The L arm is NVI with normal pulses.). negative: Full ROM (There is very decreased ROM due to pain.) Course Vital Signs 02/15/18 12:14 Temperature 97.8 F Pulse Rate 76 Respiratory 20 Rate Blood Pressure 133/96 Pulse Ox 97 - Reevaluation(s) Reevaluation #1: The patient is doing better at this time. He feels ready for home. I did discuss the need for F/U with his PCP for further evaluation and possibly a referral to a Body Component Engineer for further evaluation. 02/15/18 13:03 Disposition Disposition: Discharge Clinical Impression: Flare of rheumatoid arthritis Disposition: Home, Self-Care Condition: (2) Stable Instructions: Rheumatoid Arthritis (ED) Additional Instructions: Please take the [place] if needed and start the Medrol Dose pack tomorrow. Please see your family doctor for recheck later this week and also to discuss a referral to a Body Component Engineer. Return to the ER for any worsening symptoms. Prescriptions: Methylprednisolone [Medrol Dose Pack] 4 mg PO DAILY #1 tab.ds.pk Forms: Patient Portal Access Time of Disposition: 13:06 Quality - Quality Measures Quality Measures: N/A - Blood Pressure Screening View Details: Yes Does Patient Have Any of the Following: No Blood Pressure Classification: Pre-Hypertensive BP Reading Systolic Measurement: 126 Diastolic Measurement: 83 Screening for High Blood Pressure: < Pre-Hypertensive BP, F/U Documented > [ G8950] Pre-Hypertensive Follow-up Interventions: Referral to alternative/primary care provider.
[2018-02-15] MEDS ORDERED: ONDANSETRON 4 MG ODT TABLET SL ONE (12:30)
[2018-02-15] MEDS ORDERED: HYDROMORPHONE HCL 2 MG/ML VIAL IM ONE (12:37)
[2018-02-15] MEDS ORDERED: HYDROCODONE/APAP 5/325MG TABLET PO ONE (13:06)
== END 2018-02-15 13:23 | disposition home or self-care (01) ==
LOC: ER 12:04
DX: M06.812 Other specified rheumatoid arthritis, left shoulder (principal); F17.210 Nicotine dependence, cigarettes, uncomplicated
CPT/HCPCS: 96372; 99283; J2930

== ENCOUNTER 2018-06-30 20:29 | Emergency (ER) | payer BC ==
[2018-06-30] MEDS ORDERED: METHYLPREDNISOLONE PF 125MG/VIAL IM ONE (21:09)
[2018-06-30] MEDS ORDERED: HYDROMORPHONE HCL 2 MG/ML VIAL IM ONE (21:09)
[2018-06-30] MEDS ORDERED: ONDANSETRON 4 MG ODT TABLET SL ONE (21:09)
--- NOTE | 2018-06-30 21:25 | Emergency Department Record ---
History of Present Illness - General Chief complaint: Pain Stated complaint: RA FLARE UP Time Seen by Provider: 06/30/18 21:02 Source: Patient Mode of Arrival: Ambulatory Limitations: No limitations - History of Present Illness Initial comments: pt states he is having a flare up of his RA in his l shoulder. it is extremely painful. it is similar to flare ups hes had in the past. MD Complaint: Extremity pain, Joint pain Onset/Timin -: Hour(s) Location: Left, Shoulder -: Yes Arthralgia Severity scale (1-10): 10 Consistency: Constant Improves with: Nothing Worsens with: Exertion Associated Symptoms: Denies other symptoms - Related Data Previous Rx's Medication Instructions Recorded Methylprednisolone [Medrol Dose 4 mg PO DAILY #1 tab.ds.pk 02/15/18 Pack] Hydrocodone/Acetaminophen [[place] 1 each PO Q6HR #7 tablet 06/30/18 7.5-325 Tablet] Prednisone [Prednisone 20Mg] 20 mg PO Q12HR #8 tab 06/30/18 Allergies Allergy/AdvReac Type Severity Reaction Status Date / Time No Known Drug Allergies Allergy Verified 02/15/18 12:08 Travel Screening - Travel/Exposure Within Last 30 Days Have you traveled within the last 30 days?: No - Travel Symptoms Symptom Screening: None Review of Systems Reviewed: No additional complaints except as noted below Constitutional: Reports: As per HPI. Denies: Chills, Fever, Malaise, Night sweats, Weakness, Weight change Eyes: Reports: As per HPI. Denies: Eye discharge, Eye pain, Photophobia, Vision change ENT: Reports: As per HPI. Denies: Congestion, Dental pain, Ear pain, Epistaxis , Hearing loss, Throat pain Respiratory: Reports: As per HPI. Denies: Cough, Dyspnea, Hemoptysis, Stridor, Wheezes Cardiovascular: Reports: As per HPI. Denies: Arrhythmia, Chest pain, Dyspnea on exertion, Edema, Murmurs, Orthopnea, Palpitations, Paroxysmal nocturnal dyspnea, Rheumatic Fever, Syncope Endocrine: Reports: As per HPI. Denies: Fatigue, Heat or cold intolerance, Polydipsia, Polyuria Gastrointestinal: Reports: As per HPI. Denies: Abdominal pain, Constipation, Diarrhea, Hematemesis, Hematochezia, Melena, Nausea, Vomiting Genitourinary: Reports: As per HPI. Denies: Dysuria, Frequency, Hematuria, Incontinence, Retention, Testicular pain, Testicular mass, Urgency Musculoskeletal: Reports: As per HPI. Denies: Arthralgia, Back pain, Gout, Joint swelling, Myalgia, Neck pain Skin: Reports: As per HPI. Denies: Bruising, Change in color, Change in hair/ nails, Lesions, Pruritus, Rash Neurological: Reports: As per HPI. Denies: Abnormal gait, Confusion, Headache, Numbness, Paresthesias, Seizure, Tingling, Tremors, Vertigo, Weakness Psychiatric: Reports: As per HPI. Denies: Anxiety, Auditory hallucinations, Depression, Homicidal thoughts, Suicidal thoughts, Visual hallucinations Hematological/Lymphatic: Reports: As per HPI. Denies: Anemia, Blood Clots, Easy bleeding, Easy bruising, Swollen glands Past Medical History - SOCIAL HISTORY Smoking Status: Light tobacco smoker (<10/day) - RESPIRATORY Hx Respiratory Disorders: No - CARDIOVASCULAR Hx Cardio Disorders: Yes Hx Abnormal EKG: Yes - NEURO Hx Neuro Disorders: No - GI Hx GI Disorders: No - Hx Genitourinary Disorders: No - ENDOCRINE Hx Endocrine Disorders: No - MUSCULOSKELETAL Hx Musculoskeletal Disorders: Yes Hx Arthritis: Yes (rheumatiod) Comment:: R.A. - PSYCH Hx Psych Problems: No - HEMATOLOGY/ONCOLOGY Hx Hematology/Oncology Disorders: No Hx Cancer: Yes (skin cancer) Family Medical History Any Significant Family History?: No Family Hx Comment (NOT TO BE USED IN PLACE OF ITEMS BELOW): DENIES Physical Exam - General General Appearance: Alert, Oriented x3, Cooperative, Mild distress - Head Head exam: Normal inspection - Eye Eye exam: Normal appearance, PERRL, EOMI Pupils: Normal accommodation - ENT ENT exam: Normal exam, Mucous membranes moist, Normal external ear exam, Normal orophraynx Ear exam: Normal external inspection. negative: External canal tenderness Nasal Exam: Normal inspection. negative: Discharge, Sinus tenderness Mouth exam: Normal external inspection, Tongue normal Teeth exam: Normal inspection. negative: Dental caries Throat exam: Normal inspection. negative: Tonsillar erythema, Tonsillar exudate - Neck Neck exam: Normal inspection, Full ROM. negative: Tenderness - Respiratory Respiratory exam: Normal lung sounds bilaterally. negative: Respiratory distress - Cardiovascular Cardiovascular Exam: Regular rate, Normal rhythm, Normal heart sounds - GI/Abdominal GI/Abdominal exam: Soft, Normal bowel sounds. negative: Tenderness - Rectal Rectal exam: Deferred - exam: Deferred - Extremities Extremities exam: Normal capillary refill, Tenderness (l shoulder). negative: Full ROM - Back Back exam: Reports: Normal inspection, Full ROM. Denies: Muscle spasm, Rash noted, Tenderness - Neurological Neurological exam: Alert, CN II-XII intact, Normal gait, Oriented X3 - Psychiatric Psychiatric exam: Normal affect, Normal mood - Skin Skin exam: Dry, Intact, Normal color, Warm Course Vital Signs 06/30/18 20:34 Temperature 97.5 F L Pulse Rate [ 57 L Pulse Ox Probe] Respiratory 20 Rate Blood Pressure 131/72 [Right Arm] Pulse Ox 99 Disposition Disposition: Discharge Clinical Impression: Rheumatoid arthritis flare Disposition: Home, Self-Care Condition: (1) Good Instructions: Rheumatoid Arthritis (ED) Additional Instructions: follow up with family doctor. return sooner if worse. warm soaks to shoulder Prescriptions: Hydrocodone/Acetaminophen [[place] 7.5-325 Tablet] 1 each PO Q6HR #7 tablet Prednisone [Prednisone 20Mg] 20 mg PO Q12HR #8 tab Forms: Patient Portal Access, Return to Work/School Quality - Quality Measures Quality Measures: N/A - Blood Pressure Screening Does Patient Have Any of the Following: No Blood Pressure Classification: Pre-Hypertensive BP Reading Systolic Measurement: 131 Diastolic Measurement: 72 Screening for High Blood Pressure: < Pre-Hypertensive BP, F/U Documented > [ G8950] Pre-Hypertensive Follow-up Interventions: Follow-up with rescreen every year.
== END 2018-06-30 22:06 | disposition home or self-care (01) ==
LOC: ER 20:29
DX: M06.812 Other specified rheumatoid arthritis, left shoulder (principal); F17.210 Nicotine dependence, cigarettes, uncomplicated
CPT/HCPCS: 99283 ×2; 96372; J1170; J2930

== ENCOUNTER 2018-07-23 19:20 | Emergency (ER) | payer BC ==
[2018-07-23] MEDS ORDERED: HYDROMORPHONE HCL 2 MG/ML VIAL IM ONE (20:05)
[2018-07-23] MEDS ORDERED: METHYLPREDNISOLONE 80MG/VIAL IM ONE (20:05)
--- NOTE | 2018-07-23 20:13 | Emergency Department Record ---
History of Present Illness - General Chief complaint: Pain Stated complaint: RA FLARE UP R SHOULDER Time Seen by Provider: 07/23/18 20:02 Source: Patient, Family Mode of Arrival: Ambulatory Limitations: No limitations - History of Present Illness Initial comments: 62 yo male presents with right shoulder pain. He states he has RA. He states he over did it today and now has pain with any movement. This has occurred several times in the past. 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 NO fever. No warmth or redness. No chest pain. No other current symptoms. MD Complaint: Joint pain Onset/Timin -: Hour(s) Location: Right, Shoulder History of Same: Yes -: Yes Arthralgia Radiation: Proximal Quality: Aching, Sharp Consistency: Constant Improves with: Nothing Worsens with: Exertion Associated Symptoms: Denies other symptoms - Related Data Home Medications Medication Instructions Recorded Confirmed Last Taken Celecoxib 200 mg PO DAILY 07/23/18 07/23/18 Unknown Allergies Allergy/AdvReac Type Severity Reaction Status Date / Time No Known Drug Allergies Allergy Verified 02/15/18 12:08 Travel Screening - Travel/Exposure Within Last 30 Days Have you traveled within the last 30 days?: No - Travel/Exposure Within Last Year Have you traveled outside the [place] in the last year?: No - Additonal Travel Details Have you been exposed to anyone with a communicable illness?: No - Travel Symptoms Symptom Screening: None Review of Systems Constitutional: Denies: Chills, Fever, Malaise, Weakness Eyes: Denies: Eye discharge ENT: Denies: Congestion, Throat pain Respiratory: Denies: Cough Cardiovascular: Denies: Chest pain, Syncope Endocrine: Denies: Fatigue Gastrointestinal: Denies: Abdominal pain, Diarrhea, Nausea, Vomiting Genitourinary: Denies: Dysuria, Frequency Musculoskeletal: Reports: Arthralgia Skin: Denies: Bruising, Change in color, Rash Neurological: Denies: Abnormal gait, Headache, Numbness, Tingling, Tremors, Vertigo, Weakness Psychiatric: Denies: Anxiety Hematological/Lymphatic: Denies: Blood Clots, Easy bleeding, Easy bruising, Swollen glands Past Medical History - SOCIAL HISTORY Smoking Status: Light tobacco smoker (<10/day) Alcohol Use: None Drug Use: None - RESPIRATORY Hx Respiratory Disorders: No - CARDIOVASCULAR Hx Cardio Disorders: Yes Hx Abnormal EKG: Yes Hx Hypertension: Yes - NEURO Hx Neuro Disorders: No - GI Hx GI Disorders: No - Hx Genitourinary Disorders: No - ENDOCRINE Hx Endocrine Disorders: No - MUSCULOSKELETAL Hx Musculoskeletal Disorders: Yes Hx Arthritis: Yes (rheumatiod) Comment:: R.A. - PSYCH Hx Psych Problems: No - HEMATOLOGY/ONCOLOGY Hx Hematology/Oncology Disorders: No Hx Cancer: Yes (skin cancer) Family Medical History Any Significant Family History?: No Family Hx Comment (NOT TO BE USED IN PLACE OF ITEMS BELOW): DENIES Physical Exam - General General Appearance: Alert, Oriented x3, Cooperative, No acute distress Limitations: No limitations - Head Head exam: Atraumatic, Normal inspection - Eye Eye exam: Normal appearance. negative: Conjunctival injection, Scleral icterus - ENT ENT exam: Normal exam Ear exam: Normal external inspection Nasal Exam: Normal inspection Mouth exam: Normal external inspection - Neck Neck exam: Normal inspection - Respiratory Respiratory exam: Normal lung sounds bilaterally. negative: Respiratory distress - Cardiovascular Cardiovascular Exam: Regular rate, Normal rhythm, Normal heart sounds Peripheral Pulses: 2+: Radial (R) - Rectal Rectal exam: Deferred - exam: Deferred - Extremities Extremities exam: Normal inspection, Normal capillary refill, Tenderness. negative: Full ROM, Joint swelling, Pedal edema Image of Full Body: 1 - tender anterior shoulder, pain with abduction, no abnormal warmth or redness, no swelling. - Back Back exam: Reports: Normal inspection, Full ROM. Denies: Tenderness - Neurological Neurological exam: Alert, Normal gait, Oriented X3. negative: Motor sensory deficit - Psychiatric Psychiatric exam: Normal affect, Normal mood. negative: Agitated, Anxious - Skin Skin exam: Dry, Intact, Normal color, Warm. negative: Erythema Course Vital Signs 07/23/18 19:50 Temperature 98.1 F Pulse Rate 64 Respiratory 20 Rate Blood Pressure 131/90 Pulse Ox 95 Disposition Disposition: Discharge Clinical Impression: Arthralgia Qualifiers: Joint pain location: shoulder Laterality: right Qualified Code(s): M25.511 - Pain in right shoulder Disposition: Home, Self-Care Condition: (1) Good Instructions: Arthralgia (ED) Additional Instructions: Call your doctor tomorrow Gently move the arm/shoulder to prevent stiffness Ice it every 4-6 hours as well Forms: Patient Portal Access Time of Disposition: 20:13 Quality - Quality Measures Quality Measures: N/A - Blood Pressure Screening Does Patient Have Any of the Following: No Blood Pressure Classification: Pre-Hypertensive BP Reading Systolic Measurement: 138 Diastolic Measurement: 78 Screening for High Blood Pressure: < Pre-Hypertensive BP, F/U Documented > [ G8950] Pre-Hypertensive Follow-up Interventions: Referral to alternative/primary care provider.
== END 2018-07-23 20:54 | disposition home or self-care (01) ==
LOC: ER 19:20
DX: M25.511 Pain in right shoulder (principal); M06.9 Rheumatoid arthritis, unspecified; I10 Essential (primary) hypertension; F17.210 Nicotine dependence, cigarettes, uncomplicated
CPT/HCPCS: 96372; 99283; J1040

== ENCOUNTER 2019-01-04 16:49 | Emergency (ER) | payer BC ==
[2019-01-04] MEDS ORDERED: HYDROMORPHONE HCL 2 MG/ML VIAL IM ONE (17:15)
[2019-01-04] MEDS ORDERED: METHYLPREDNISOLONE PF 125MG/VIAL IM ONE (17:15)
--- NOTE | 2019-01-04 17:24 | Emergency Department Record ---
History of Present Illness - General Chief Complaint: Knee injury Stated Complaint: KNEE PAIN Time Seen by Provider: 01/04/19 17:12 Source: Patient Mode of Arrival: Ambulatory Limitations: No limitations - History of Present Illness Initial Comments: The patient is here due to L knee pain for 5 hours. The patient denies any fall or injury. He has a long hx of RA with similar joint pain flares. The patient is on multiple medicines for RA but does get pain flares a few times a year just like this. He denies any recent illnesses or injuries. MD Complaint: Other Onset/Timin -: Hour(s) Severity: Severe Severity scale (1-10): >10 Improves With: Nothing Worsens With: Movement, Weight bearing - Related Data Previous Rx's Medication Instructions Recorded Hydrocodone/Acetaminophen [[place] 1 each PO QID #6 tablet 01/04/19 5-325 Tablet] Prednisone [Prednisone 20Mg] 40 mg PO DAILY #8 tab 01/04/19 Allergies Allergy/AdvReac Type Severity Reaction Status Date / Time No Known Drug Allergies Allergy Verified 01/04/19 17:10 Travel Screening - Travel/Exposure Within Last 30 Days Have you traveled within the last 30 days?: No - Travel/Exposure Within Last Year Have you traveled outside the [place] in the last year?: No - Additonal Travel Details Have you been exposed to anyone with a communicable illness?: No - Travel Symptoms Symptom Screening: None Review of Systems Constitutional: Denies: Chills, Fever Eyes: Denies: Eye discharge ENT: Denies: Congestion Respiratory: Denies: Cough, Dyspnea Past Medical History - SOCIAL HISTORY Smoking Status: Light tobacco smoker (<10/day) - RESPIRATORY Hx Respiratory Disorders: No - CARDIOVASCULAR Hx Cardio Disorders: Yes Hx Abnormal EKG: Yes Hx Hypertension: Yes - NEURO Hx Neuro Disorders: No - GI Hx GI Disorders: No - Hx Genitourinary Disorders: No - ENDOCRINE Hx Endocrine Disorders: No - MUSCULOSKELETAL Hx Musculoskeletal Disorders: Yes Hx Arthritis: Yes (rheumatiod) Comment:: R.A. - PSYCH Hx Psych Problems: No - HEMATOLOGY/ONCOLOGY Hx Hematology/Oncology Disorders: No Hx Cancer: Yes (skin cancer) Family Medical History Any Significant Family History?: Yes Hx Heart Disease: Father Physical Exam - General General Appearance: Alert, Oriented x3, Cooperative, Mild distress (due to L knee pain.) - Head Head exam: Atraumatic, Normocephalic - Eye Eye exam: Normal appearance, PERRL - Neck Neck exam: Normal inspection, Full ROM. negative: Tenderness - Respiratory Respiratory exam: Normal lung sounds bilaterally. negative: Respiratory distress - Cardiovascular Cardiovascular Exam: Regular rate, Normal rhythm, Normal heart sounds - GI/Abdominal GI/Abdominal exam: Soft, Normal bowel sounds. negative: Tenderness - Extremities Extremities exam: Normal inspection (The L knee is without any swelling, bruising, erythema or effusion.), Normal capillary refill, Tenderness (There is mild L knee tenderness but no warmth.). negative: Full ROM (There is decreased full flexion due to pain. ), Joint swelling - Neurological Neurological exam: Alert, Normal gait. negative: Abnormal gait, Motor sensory deficit - Skin Skin exam: negative: Rash Course Vital Signs 01/04/19 17:03 Temperature 97.8 F Pulse Rate 64 Respiratory 14 Rate Blood Pressure 131/83 Pulse Ox 98 - Reevaluation(s) Reevaluation #1: The patient is doing better at this time and is ready for home. He will need a work note for tomorrow. 01/04/19 17:54 Disposition Disposition: Discharge Clinical Impression: Rheumatoid arthritis flare Disposition: Home, Self-Care Condition: (2) Stable Instructions: Rheumatoid Arthritis (ED) Additional Instructions: Please continue your regular medicines and add the [place] and Prednisone as directed. Please see your family doctor next week if not better. Return to the ER for any worsening symptoms. Prescriptions: Hydrocodone/Acetaminophen [[place] 5-325 Tablet] 1 each PO QID #6 tablet Prednisone [Prednisone 20Mg] 40 mg PO DAILY #8 tab Forms: Patient Portal Access Time of Disposition: 17:57 Quality - Quality Measures Quality Measures: N/A - Blood Pressure Screening View Details: Yes Does Patient Have Any of the Following: No Blood Pressure Classification: Pre-Hypertensive BP Reading Systolic Measurement: 131 Diastolic Measurement: 83 Screening for High Blood Pressure: < Pre-Hypertensive BP, F/U Documented > [ G8950] Pre-Hypertensive Follow-up Interventions: Referral to alternative/primary care provider.
== END 2019-01-04 18:18 | disposition home or self-care (01) ==
LOC: ER 16:49
DX: M06.862 Other specified rheumatoid arthritis, left knee (principal); I10 Essential (primary) hypertension; F17.210 Nicotine dependence, cigarettes, uncomplicated
CPT/HCPCS: 99283 ×2; 96372; J1170; J2930

== ENCOUNTER 2019-02-06 17:26 | Emergency (ER) | payer BC ==
[2019-02-06] MEDS ORDERED: METHYLPREDNISOLONE PF 125MG/VIAL IM ONE (18:11)
[2019-02-06] MEDS ORDERED: KETOROLAC 60 MG/2 ML VIAL IM STA (18:11)
--- NOTE | 2019-02-06 18:14 | Emergency Department Record ---
History of Present Illness - General Stated Complaint: ARTHRITIS FLARE UP Time Seen by Provider: 02/06/19 18:11 Source: Patient Mode of Arrival: Ambulatory Limitations: No limitations - History of Present Illness Initial comments: 63 yo male presents to ED for evaluation of diffuse arthralgias, reports history or RA and that he is currently having a "flare up" of his symptoms. Patient has not been taking anything for his pain symptoms other than his baseline Prednisone, Plaquenil, and Methotrexate. Patient reports that he will walking in a wedding this coming weekend and "needs something for his symptoms". Patient denies new injury, fevers, chills, or recent illness. -: Days(s) Quality: Aching Consistency: Constant Improves with: Rest Worsens with: Movement Associated Symptoms: Denies other symptoms Treatments Prior to Arrival: Other - [place] Coma Scale Eye Response: (4) Open spontaneously Motor Response: (6) Obeys commands Verbal Response: (5) Oriented [place] Total: 15 - Related Data Previous Rx's Medication Instructions Recorded Hydrocodone/Acetaminophen [[place] 1 each PO QID #6 tablet 01/04/19 5-325 Tablet] Prednisone [Prednisone 20Mg] 40 mg PO DAILY #8 tab 01/04/19 Ibuprofen [Motrin 600Mg] 600 mg PO Q6H PRN #30 tablet 02/06/19 Prednisone [Prednisone 20Mg] 20 mg PO BID #15 tab 02/06/19 Allergies Allergy/AdvReac Type Severity Reaction Status Date / Time No Known Drug Allergies Allergy Verified 02/06/19 18:23 Review of Systems Constitutional: Denies: Chills, Fever, Malaise, Night sweats Eyes: Denies: Eye discharge, Eye pain ENT: Denies: Congestion, Ear pain, Epistaxis Respiratory: Denies: Cough, Dyspnea Cardiovascular: Denies: Chest pain, Dyspnea on exertion Endocrine: Denies: Fatigue, Heat or cold intolerance Gastrointestinal: Denies: Abdominal pain, Nausea, Vomiting Genitourinary: Denies: Incontinence, Retention Musculoskeletal: Reports: Myalgia. Denies: Arthralgia, Back pain, Gout, Joint swelling Skin: Denies: Bruising, Change in color Neurological: Denies: Abnormal gait, Confusion, Headache, Tingling, Tremors Psychiatric: Denies: Anxiety Hematological/Lymphatic: Denies: Anemia, Blood Clots Past Medical History - SOCIAL HISTORY Smoking Status: Light tobacco smoker (<10/day) - RESPIRATORY Hx Respiratory Disorders: No - CARDIOVASCULAR Hx Cardio Disorders: Yes Hx Abnormal EKG: Yes Hx Hypertension: Yes - NEURO Hx Neuro Disorders: No - GI Hx GI Disorders: No - Hx Genitourinary Disorders: No - ENDOCRINE Hx Endocrine Disorders: No - MUSCULOSKELETAL Hx Musculoskeletal Disorders: Yes Hx Arthritis: Yes (rheumatiod) Comment:: R.A. - PSYCH Hx Psych Problems: No - HEMATOLOGY/ONCOLOGY Hx Hematology/Oncology Disorders: No Hx Cancer: Yes (skin cancer) Family Medical History Hx Heart Disease: Father Physical Exam - General General Appearance: Alert, Oriented x3, Cooperative, Mild distress Limitations: No limitations - Head Head exam: Atraumatic, Normocephalic, Normal inspection Head exam detail: negative: Abrasion, Contusion, Davis's sign, General tenderness, Hematoma, Laceration - Eye Eye exam: Normal appearance. negative: Conjunctival injection, Periorbital swelling, Periorbital tenderness, Scleral icterus - ENT Ear exam: negative: Auricular hematoma, Auricular trauma Nasal Exam: negative: Active bleeding, Discharge, Dried blood, Foreign body Mouth exam: negative: Drooling, Laceration, Muffled voice, Tongue elevation - Neck Neck exam: Normal inspection. negative: Meningismus, Tenderness - Respiratory Respiratory exam: Normal lung sounds bilaterally. negative: Respiratory distress, Rhonchi, Stridor, Wheezes - Cardiovascular Cardiovascular Exam: Regular rate, Normal rhythm, Normal heart sounds - GI/Abdominal GI/Abdominal exam: Soft. negative: Rebound, Rigid, Tenderness - Rectal Rectal exam: Deferred - exam: Deferred - Extremities Extremities exam: Other (Arthritic changes to the hands bilaterally). negative: Pedal edema, Tenderness - Back Back exam: Denies: CVA tenderness (R), CVA tenderness (L) - Neurological Neurological exam: Alert, Normal gait, Oriented X3 - Psychiatric Psychiatric exam: Normal affect, Normal mood - Skin Skin exam: Normal color. negative: Abrasion Type of lesion: negative: abrasion Course - Reevaluation(s) Reevaluation #1: 02/06/19 18:20 Patient was seen and examined, requesting "a steroid shot and something for pain". Will administer Solumedrol 125 mg and Toradol 60 mg IM Will also prescribe Prednisone taper and Motrin 600 mg as directed for his symptoms. Patient is otherwise well appearing and stable for discharge at this time. Disposition Disposition: Discharge Clinical Impression: Rheumatoid arthritis flare Disposition: Home, Self-Care Condition: (2) Stable Instructions: Rheumatoid Arthritis (ED) Additional Instructions: Return to ED if your symptoms worsen or if you have any concerns. Prednisone and Motrin 600 mg as directed. Hold your Prednisone 7.5 mg daily until Prednisone prescription is completed. Follow-up with your family doctor in 3-5 days as directed. Prescriptions: Ibuprofen [Motrin 600Mg] 600 mg PO Q6H PRN #30 tablet PRN Reason: Pain - Mild To Moderate (1-7) Prednisone [Prednisone 20Mg] 20 mg PO BID #15 tab Forms: Patient Portal Access Time of Disposition: 18:14 Quality - Quality Measures Quality Measures: N/A - Blood Pressure Screening Does Patient Have Any of the Following: No Blood Pressure Classification: Pre-Hypertensive BP Reading Systolic Measurement: 112 Diastolic Measurement: 84 Screening for High Blood Pressure: < Pre-Hypertensive BP, F/U Documented > [G8950] Pre-Hypertensive Follow-up Interventions: Referral to alternative/primary care provider.
== END 2019-02-06 18:50 | disposition home or self-care (01) ==
LOC: ER 17:26
DX: M06.842 Other specified rheumatoid arthritis, left hand (principal); M06.841 Other specified rheumatoid arthritis, right hand; I10 Essential (primary) hypertension; F17.210 Nicotine dependence, cigarettes, uncomplicated
CPT/HCPCS: 96372; 99283; J1885; J2930

== ENCOUNTER 2019-02-21 22:35 | Emergency (ER) | payer BC ==
[2019-02-21] MEDS ORDERED: KETOROLAC 60 MG/2 ML VIAL IM STA (23:16)
--- NOTE | 2019-02-21 23:32 | Emergency Department Record ---
History of Present Illness - General Chief complaint: Extremity Problem Stated complaint: RT WRIST PAIN/SWELLING Time Seen by Provider: 02/21/19 23:16 Source: Patient Mode of Arrival: Ambulatory Limitations: No limitations - History of Present Illness Initial comments: 63 yo male presents to ED for evaluation of worsening right wrist pain resulting from arthritis to the right wrist. Patient reports frequent flare-ups to his oints resulting from RA, took 27 mg of Prednisone this evening. Patient denies injury, fever, chills, or swelling to the wrist. MD Complaint: Joint pain Onset/Timin -: Hour(s) Location: Right, Other History of Same: Yes Radiation: None Severity scale (1-10): 9 Quality: Stabbing Consistency: Constant Improves with: Nothing Worsens with: Other Associated Symptoms: Denies other symptoms - Related Data Previous Rx's Medication Instructions Recorded Hydrocodone/Acetaminophen [[place] 1 each PO QID #6 tablet 01/04/19 5-325 Tablet] Prednisone [Prednisone 20Mg] 40 mg PO DAILY #8 tab 01/04/19 Prednisone [Prednisone 20Mg] 20 mg PO BID #15 tab 02/06/19 Prednisone [Prednisone 20Mg] 20 mg PO BID #10 tab 02/21/19 Allergies Allergy/AdvReac Type Severity Reaction Status Date / Time No Known Drug Allergies Allergy Verified 02/06/19 18:23 Travel Screening - Travel/Exposure Within Last 30 Days Have you traveled within the last 30 days?: No - Travel/Exposure Within Last Year Have you traveled outside the [place] in the last year?: No - Additonal Travel Details Have you been exposed to anyone with a communicable illness?: No - Travel Symptoms Symptom Screening: None Review of Systems Constitutional: Denies: Chills, Fever, Malaise, Night sweats Eyes: Denies: Eye discharge, Eye pain ENT: Denies: Congestion, Ear pain, Epistaxis Respiratory: Denies: Cough, Dyspnea Cardiovascular: Denies: Chest pain, Dyspnea on exertion Endocrine: Denies: Fatigue, Heat or cold intolerance Gastrointestinal: Denies: Abdominal pain, Nausea, Vomiting Genitourinary: Denies: Incontinence, Retention Musculoskeletal: Reports: Arthralgia. Denies: Back pain, Gout, Joint swelling Skin: Denies: Bruising, Change in color Neurological: Denies: Abnormal gait, Confusion, Headache, Seizure Psychiatric: Denies: Anxiety Hematological/Lymphatic: Denies: Anemia, Blood Clots Past Medical History - SOCIAL HISTORY Smoking Status: Light tobacco smoker (<10/day) Alcohol Use: None Drug Use: None - RESPIRATORY Hx Respiratory Disorders: No - CARDIOVASCULAR Hx Cardio Disorders: Yes Hx Abnormal EKG: Yes Hx Hypertension: Yes - NEURO Hx Neuro Disorders: No - GI Hx GI Disorders: No - Hx Genitourinary Disorders: No - ENDOCRINE Hx Endocrine Disorders: No - MUSCULOSKELETAL Hx Musculoskeletal Disorders: Yes Hx Arthritis: Yes (rheumatiod) Comment:: R.A. - PSYCH Hx Psych Problems: No - HEMATOLOGY/ONCOLOGY Hx Hematology/Oncology Disorders: No Hx Cancer: Yes (skin cancer) Family Medical History Any Significant Family History?: No Family Hx Comment (NOT TO BE USED IN PLACE OF ITEMS BELOW): DENIES Hx Heart Disease: Father Physical Exam - General General Appearance: Alert, Oriented x3, Cooperative, Mild distress Limitations: No limitations - Head Head exam: Atraumatic, Normocephalic, Normal inspection Head exam detail: negative: Abrasion, Contusion, Davis's sign, General tenderness, Hematoma, Laceration - Eye Eye exam: Normal appearance. negative: Conjunctival injection, Periorbital swelling, Periorbital tenderness, Scleral icterus - ENT Ear exam: negative: Auricular hematoma, Auricular trauma Nasal Exam: negative: Active bleeding, Discharge, Dried blood, Foreign body Mouth exam: negative: Drooling, Laceration, Muffled voice, Tongue elevation - Neck Neck exam: Normal inspection. negative: Meningismus, Tenderness - Respiratory Respiratory exam: Normal lung sounds bilaterally. negative: Rales, Respiratory distress, Rhonchi, Stridor - Cardiovascular Cardiovascular Exam: Regular rate, Normal rhythm, Normal heart sounds Peripheral Pulses: 3+: Radial (R) - GI/Abdominal GI/Abdominal exam: Soft. negative: Rebound, Rigid, Tenderness - Rectal Rectal exam: Deferred - exam: Deferred - Extremities Extremities exam: Tenderness, Other (Mild TTP over the wrist joitn diffusely, no edema present, no erythem or clinical signs of infection.). negative: Calf tenderness, Pedal edema - Back Back exam: Denies: CVA tenderness (R), CVA tenderness (L) - Neurological Neurological exam: Alert, Normal gait, Oriented X3 - Psychiatric Psychiatric exam: Normal affect, Normal mood - Skin Skin exam: Normal color. negative: Abrasion Type of lesion: negative: abrasion Course Vital Signs 02/21/19 23:12 Temperature 97.3 F L Pulse Rate 60 Respiratory 22 Rate Blood Pressure 118/72 Pulse Ox 96 - Reevaluation(s) Reevaluation #1: 02/21/19 23:30 History and examination appear c/w a flare-up of his RA Will increased his Prednisone back to 20 mg BID, administer Toradol. Will refer the patient to Rheumatology clinic in [place] for consultation. Patient has Motrin 600 mg at home as well. Patient appears stable for discharge at this time. Disposition Disposition: Discharge Clinical Impression: Rheumatoid arthritis flare Disposition: Home, Self-Care Condition: (2) Stable Instructions: Rheumatoid Arthritis (ED) Additional Instructions: Return to ED if your symptoms worsen or if you have any concerns. Prednisone and Motrin as directed. Follow-up with your family doctor in 3-5 days as directed. Prescriptions: Prednisone [Prednisone 20Mg] 20 mg PO BID #10 tab Time of Disposition: 23:32 Quality - Quality Measures Quality Measures: N/A - Blood Pressure Screening Does Patient Have Any of the Following: No Blood Pressure Classification: Normal BP Reading Systolic Measurement: 118 Diastolic Measurement: 72 Screening for High Blood Pressure: < Normal BP, F/U Not Required > [G8783]
== END 2019-02-21 23:59 | disposition home or self-care (01) ==
LOC: ER 22:35
DX: M06.831 Other specified rheumatoid arthritis, right wrist (principal); I10 Essential (primary) hypertension; F17.210 Nicotine dependence, cigarettes, uncomplicated
CPT/HCPCS: 96372; 99283; J1885